=== PATIENT | female | born 1960 | race Two or more races ===

== ENCOUNTER → 2023-06-04 07:28 | Outpatient (REF) | payer OTHER, SELFPAY ==
[2023-06-04 08:34] LABS: % Basophils 1.6 % (0-2); % Eosinophils 4.2 % (0-6); % Immature Granulocytes 0.3 % (0-0.5); % Lymphocytes 31.2 % (20.5-51.1); % Monocytes 9.2 % (1.7-9.3); % Neutrophils 53.5 % (42.2-75.2); Absolute Basophils 0.1 10^3/uL (0-0.2); Absolute Eosinophils 0.2 10^3/uL (0-0.7); Absolute Lymphocytes 1.2 10^3/uL (1.2-3.4); Absolute Monocytes 0.4 10^3/uL (0.1-0.6); Absolute Neutrophils 2.1 10^3/uL (1.4-6.5); Hematocrit 40.7 % (37.0-47.0); Hemoglobin 13.6 g/dL (12.0-16.0); Mean Corp Hgb Conc. 33.4 g/dL (33.0-37.0); Mean Corpuscular Hgb 30.4 pg (27.0-31.0); Mean Corpuscular Volume 90.8 fL (81.0-99.0); Mean Platelet Volume 9.4 fL (7.4-10.4); Nucleated Red Blood Cells % 0 %; Platelet Count 293 10^3/uL (130-400); Red Blood Cell Count 4.48 10^6/uL (4.20-5.40); Red Cell Dist. Width 12.6 % (11.5-14.5); White Blood Cell Count 3.8 10^3/uL (4.8-10.8)
== END ==
LOC: REG 07:28
PROVIDERS: ATTENDING PHYSICIAN Family Medicine
DX: D72.819 Decreased white blood cell count, unspecified (principal)
CPT/HCPCS: 36415; 85025

== ENCOUNTER → 2023-06-10 08:02 | Outpatient (REF) | payer OTHER, SELFPAY ==
[2023-06-10 10:40] LABS: HDL Cholesterol 73 mg/dl; LDL Cholesterol, Calculated 129 mg/dl; Total Cholesterol 213 mg/dl (50-199); Triglyceride 58 mg/dl (10-149); Very Low Density Lipoprotein 11 mg/dl (0-30)
[2023-06-10 10:52] LABS: Vitamin D, 25-OH*** 64.2 ng/mL (30-80)
== END ==
LOC: REG 08:02
PROVIDERS: ATTENDING PHYSICIAN Family Medicine
DX: E78.5 Hyperlipidemia, unspecified (principal); E55.9 Vitamin D deficiency, unspecified
CPT/HCPCS: 36415; 80061; 82306

== ENCOUNTER → 2023-10-26 16:11 | Outpatient (REF) | payer OTHER, SELFPAY | LOC: WDC 16:11 | PROVIDERS: ATTENDING PHYSICIAN Family Medicine | DX: Z12.31 Encounter for screening mammogram for malignant neoplasm of breast (principal) | CPT/HCPCS: 77063; 77067 ==

== ENCOUNTER → 2023-12-23 07:33 | Outpatient (REF) | payer OTHER, SELFPAY ==
[2023-12-23 09:48] LABS: % Basophils 1.4 % (0-2); % Eosinophils 3.1 % (0-6); % Immature Granulocytes 0.2 % (0-0.5); % Lymphocytes 28.3 % (20.5-51.1); % Monocytes 10.1 % (1.7-9.3); % Neutrophils 56.9 % (42.2-75.2); Absolute Basophils 0.1 10^3/uL (0-0.2); Absolute Eosinophils 0.1 10^3/uL (0-0.7); Absolute Lymphocytes 1.2 10^3/uL (1.2-3.4); Absolute Monocytes 0.4 10^3/uL (0.1-0.6); Absolute Neutrophils 2.4 10^3/uL (1.4-6.5); Hematocrit 42.7 % (37.0-47.0); Hemoglobin 14.4 g/dL (12.0-16.0); Mean Corp Hgb Conc. 33.7 g/dL (33.0-37.0); Mean Corpuscular Hgb 31.4 pg (27.0-31.0); Mean Platelet Volume 9.5 fL (7.4-10.4); Nucleated Red Blood Cells % 0 %; Platelet Count 264 10^3/uL (130-400); Red Blood Cell Count 4.59 10^6/uL (4.20-5.40); Red Cell Dist. Width 12.1 % (11.5-14.5); White Blood Cell Count 4.2 10^3/uL (4.8-10.8)
[2023-12-23 11:39] LABS: ALT (SGPT) 31 U/L (0-35); AST (SGOT) 36 U/L (14-36); Albumin 4.5 g/dl (3.5-5.0); Alkaline Phosphatase 58 U/L (38-126); Blood Urea Nitrogen 13 mg/dl (7-17); Calcium 9.2 mg/dl (8.4-10.2); Carbon Dioxide 26 mmol/L (22-30); Chloride 102 mmol/L (98-107); Glucose 84 mg/dl (70-99); HDL Cholesterol 72 mg/dl; LDL Cholesterol, Calculated 154 mg/dl; Potassium 4.8 mmol/L (3.5-5.1); Sodium 141 mmol/L (135-145); Total Bilirubin 0.6 mg/dl (0.2-1.3); Total Cholesterol 254 mg/dl (50-199); Total Protein 6.9 g/dl (6.3-8.2); Triglyceride 141 mg/dl (10-149); Very Low Density Lipoprotein 28 mg/dl (0-30); eGFR > 60.00
== END ==
LOC: REG 07:33
PROVIDERS: ATTENDING PHYSICIAN Family Medicine
DX: E78.5 Hyperlipidemia, unspecified (principal); G57.11 Meralgia paresthetica, right lower limb; D70.9 Neutropenia, unspecified
CPT/HCPCS: 36415; 80053; 80061; 84443; 85025

== ENCOUNTER → 2023-12-29 14:18 | Outpatient (REF) | payer OTHER, SELFPAY ==
[2023-12-29 16:14] LABS: Vitamin D, 25-OH*** 50.6 ng/mL (30-80)
== END ==
LOC: REG 14:18
PROVIDERS: ATTENDING PHYSICIAN Family Medicine
DX: E55.9 Vitamin D deficiency, unspecified (principal)
CPT/HCPCS: 36415; 82306

== ENCOUNTER → 2024-01-05 17:12 | Outpatient (REF) | payer OTHER, SELFPAY ==
[2024-01-05 18:15] LABS: Erythrocyte Sed Rate 12 mm/hour (0-20)
[2024-01-05 18:23] LABS: C-Reactive Protein < 5.00 mg/L (0.0-10.00)
[2024-01-06 08:53] LABS: Rheumatoid Agglutinin Less Than 10 IU (<10 IU)
[2024-01-06 10:19] LABS: Lyme Antibody Screen, EIA Negative (Negative)
== END ==
LOC: REG 17:12
PROVIDERS: ATTENDING PHYSICIAN Family Medicine
DX: M25.50 Pain in unspecified joint (principal)
CPT/HCPCS: 36415; 85652; 86140; 86430; 86618

== ENCOUNTER → 2024-01-13 08:30 | Outpatient (REF) | payer OTHER, SELFPAY | LOC: RAD 08:30 | PROVIDERS: ATTENDING PHYSICIAN Family Medicine | DX: M54.6 Pain in thoracic spine (principal) | CPT/HCPCS: 72072 ==

== ENCOUNTER → 2024-08-08 13:04 | Outpatient (REF) | payer MEDICARE, SELFPAY | LOC: RCS 13:04 | PROVIDERS: ATTENDING PHYSICIAN Nurse Practitioner | DX: R00.2 Palpitations (principal) | CPT/HCPCS: 93225; 93226 ==

== ENCOUNTER → 2024-11-21 18:56 | Outpatient (REF) | payer MEDICARE, SELFPAY | LOC: WDC 18:56 | PROVIDERS: ATTENDING PHYSICIAN Family Medicine | DX: Z12.31 Encounter for screening mammogram for malignant neoplasm of breast (principal) | CPT/HCPCS: 77063; 77067 ==

== ENCOUNTER → 2025-01-30 14:40 | Outpatient (REF) | payer MEDICARE, SELFPAY | LOC: RAD 14:40 | PROVIDERS: ATTENDING PHYSICIAN Family Medicine | DX: Z13.820 Encounter for screening for osteoporosis (principal); M85.88 Other specified disorders of bone density and structure, other site; Z78.0 Asymptomatic menopausal state | CPT/HCPCS: 77080 ==